=== PATIENT | male | born 1980 | race Caucasian/White ===

== ENCOUNTER 2021-09-10 07:33 | Emergency (ER) | payer OTHER ==
[~2021-09-10] VITALS: Ht 180.3 cm; Wt 83.9 kg
[~2021-09-10 07:33] MED LIST: Bactrim Ds Tab1 EACH PO; CEPH500 PO; Cyclobenzaprine5 MG PO; HYDACE5 PO; Motrin800 MG PO; Naprosyn500 MG PO; PENVK500 PO; RXTRAM50 PO; TRAM50 PO
[2021-09-10] MEDS ORDERED: ALEVAZOL56.7 G1 TOP (08:29)
== END 2021-09-10 08:36 | disposition home or self-care (01) ==
LOC: ER 07:33
DX: M79.662 Pain in left lower leg (principal); F17.210 Nicotine dependence, cigarettes, uncomplicated
CPT/HCPCS: 93971; 99283-25

== ENCOUNTER 2023-05-27 20:23 | Emergency (ER) | payer OTHER ==
[~2023-05-27] VITALS: Ht 172.7 cm; Wt 81.7 kg
[~2023-05-27 20:23] MED LIST changes: +ALEVAZOL56.7 G1 TOP
[2023-05-27 20:43] VITALS: BP 153/96
== END 2023-05-27 20:53 | disposition home or self-care (01) ==
LOC: ER 20:23
DX: S01.511A Laceration without foreign body of lip, initial encounter (principal); F17.210 Nicotine dependence, cigarettes, uncomplicated; W21.05XA Struck by basketball, initial encounter
CPT/HCPCS: 12011; 99282-25

== ENCOUNTER 2023-12-07 16:35 | Emergency (ER) | payer OTHER ==
[~2023-12-07] VITALS: Ht 182.9 cm; Wt 90.7 kg
[2023-12-07 16:43] VITALS: BP 162/108
== END 2023-12-07 18:15 | disposition home or self-care (01) ==
LOC: ER 16:35
DX: S51.812A Laceration without foreign body of left forearm, initial encounter (principal); W26.8XXA Contact with other sharp object(s), not elsewhere classified, initial encounter; F17.210 Nicotine dependence, cigarettes, uncomplicated
CPT/HCPCS: 12001; 73080; 99283-25